=== PATIENT | female | born 1985 | race Caucasian/White ===

== ENCOUNTER → 2023-12-07 14:48 | Outpatient (REF) | payer OTHER, SELFPAY | LOC: PNTC 14:48 | PROVIDERS: ATTENDING PHYSICIAN Obstetrics & Gynecology; PRIMARYCARE PHYSICIAN Family Medicine | DX: O35.5XX0 Maternal care for (suspected) damage to fetus by drugs, not applicable or unspecified (principal); O43.219 Placenta accreta, unspecified trimester | CPT/HCPCS: 76805; 93976 ==

== ENCOUNTER → 2024-01-15 13:18 | Outpatient (REF) | payer OTHER, SELFPAY | LOC: PNTC 13:18 | PROVIDERS: ATTENDING PHYSICIAN Obstetrics & Gynecology | DX: O44.40 Low lying placenta NOS or without hemorrhage, unspecified trimester (principal); O34.219 Maternal care for unspecified type scar from previous cesarean delivery; O09.529 Supervision of elderly multigravida, unspecified trimester | CPT/HCPCS: 76811; 76817; 93976 ==

== ENCOUNTER → 2024-02-13 09:49 | Outpatient (REF) | payer OTHER, SELFPAY | LOC: PNTC 09:49 | PROVIDERS: ATTENDING PHYSICIAN Obstetrics & Gynecology | DX: O09.529 Supervision of elderly multigravida, unspecified trimester (principal); O34.219 Maternal care for unspecified type scar from previous cesarean delivery; O44.40 Low lying placenta NOS or without hemorrhage, unspecified trimester | CPT/HCPCS: 76816; 76817 ==

== ENCOUNTER → 2024-02-26 07:39 | Outpatient (REF) | payer OTHER, SELFPAY | LOC: PNTC 07:39 | PROVIDERS: ATTENDING PHYSICIAN Obstetrics & Gynecology | DX: O36.0120 Maternal care for anti-D [Rh] antibodies, second trimester, not applicable or unspecified (principal) | CPT/HCPCS: 36415; 86850; 86900; 86901; 96372; J2790 ==

== ENCOUNTER → 2024-03-27 09:48 | Outpatient (REF) | payer OTHER, SELFPAY | LOC: PNTC 09:48 | PROVIDERS: ATTENDING PHYSICIAN Obstetrics & Gynecology | DX: O34.219 Maternal care for unspecified type scar from previous cesarean delivery (principal); O09.529 Supervision of elderly multigravida, unspecified trimester; O44.40 Low lying placenta NOS or without hemorrhage, unspecified trimester | CPT/HCPCS: 76816 ==

== ENCOUNTER → 2024-04-08 06:45 | Outpatient (REF) | payer OTHER, SELFPAY | LOC: PNTC 06:45 | PROVIDERS: ATTENDING PHYSICIAN Obstetrics & Gynecology | DX: O34.219 Maternal care for unspecified type scar from previous cesarean delivery (principal); O09.523 Supervision of elderly multigravida, third trimester; O99.213 Obesity complicating pregnancy, third trimester; O99.843 Bariatric surgery status complicating pregnancy, third trimester; G44.049 Chronic paroxysmal hemicrania, not intractable | CPT/HCPCS: 76815 ==

== ENCOUNTER → 2024-04-15 06:57 | Outpatient (REF) | payer OTHER, SELFPAY | LOC: PNTC 06:57 | PROVIDERS: ATTENDING PHYSICIAN Obstetrics & Gynecology | DX: O34.219 Maternal care for unspecified type scar from previous cesarean delivery (principal); O09.523 Supervision of elderly multigravida, third trimester; O99.213 Obesity complicating pregnancy, third trimester; G44.049 Chronic paroxysmal hemicrania, not intractable; O99.843 Bariatric surgery status complicating pregnancy, third trimester | CPT/HCPCS: 59025; 76815 ==

== ENCOUNTER → 2024-04-22 07:04 | Outpatient (REF) | payer OTHER, SELFPAY | LOC: PNTC 07:04 | PROVIDERS: ATTENDING PHYSICIAN Obstetrics & Gynecology | DX: O09.529 Supervision of elderly multigravida, unspecified trimester (principal); O34.219 Maternal care for unspecified type scar from previous cesarean delivery; O44.40 Low lying placenta NOS or without hemorrhage, unspecified trimester | CPT/HCPCS: 59025; 76816 ==

== ENCOUNTER → 2024-04-29 07:17 | Outpatient (REF) | payer OTHER, SELFPAY | LOC: PNTC 07:17 | PROVIDERS: ATTENDING PHYSICIAN Obstetrics & Gynecology | DX: O44.40 Low lying placenta NOS or without hemorrhage, unspecified trimester (principal); O34.211 Maternal care for low transverse scar from previous cesarean delivery; O34.219 Maternal care for unspecified type scar from previous cesarean delivery; O09.519 Supervision of elderly primigravida, unspecified trimester | CPT/HCPCS: 59025; 76815 ==

== ENCOUNTER → 2024-05-06 06:57 | Outpatient (REF) | payer OTHER, SELFPAY | LOC: PNTC 06:57 | PROVIDERS: ATTENDING PHYSICIAN Obstetrics & Gynecology | DX: O09.529 Supervision of elderly multigravida, unspecified trimester (principal) | CPT/HCPCS: 59025 ==

== ENCOUNTER → 2024-05-13 07:04 | Outpatient (REF) | payer OTHER, SELFPAY | LOC: PNTC 07:04 | PROVIDERS: ATTENDING PHYSICIAN Obstetrics & Gynecology | DX: O44.40 Low lying placenta NOS or without hemorrhage, unspecified trimester (principal); O34.211 Maternal care for low transverse scar from previous cesarean delivery; O09.519 Supervision of elderly primigravida, unspecified trimester; O09.529 Supervision of elderly multigravida, unspecified trimester | CPT/HCPCS: 59025; 76815 ==

== ENCOUNTER 2024-05-15 09:38 | Inpatient (IN) | payer OTHER, SELFPAY ==
[2024-05-15 10:00] VITALS: BP 120/75; BMI 40.2
[2024-05-15] MEDS: LR 1000 IV (10:10)
[2024-05-15 10:59] LABS: Hematocrit 36.8 % (37.0-47.0); Mean Corp Hgb Conc. 32.6 g/dL (33.0-37.0); Mean Corpuscular Hgb 30.2 pg (27.0-31.0); Mean Corpuscular Volume 92.5 fL (81.0-99.0); Mean Platelet Volume 10.1 fL (7.4-10.4); Platelet Count 231 10^3/uL (130-400); Red Blood Cell Count 3.98 10^6/uL (4.20-5.40); Red Cell Dist. Width 13.2 % (11.5-14.5); White Blood Cell Count 9.2 10^3/uL (4.8-10.8)
[2024-05-15] MEDS: BICITRA 30 ML PO (13:45)
[2024-05-15] MEDS: TYLENOL 1000 MG PO (13:45)
[2024-05-15] MEDS: ANCEF 10 IV (13:46)
[2024-05-15] MEDS: PITOCIN 30 UNITS/NSS 500 ML IV ×2 (15:25→18:23)
[2024-05-15] MEDS: TORADOL 15 MG IV ×2 (16:06→22:44)
[2024-05-15] MEDS: TYLENOL 650 MG PO (20:51)
[2024-05-16] MEDS: TORADOL 15 MG IV ×2 (04:47→09:49)
[2024-05-16 04:58] LABS: Hematocrit 29.5 % (37.0-47.0); Hemoglobin 9.7 g/dL (12.0-16.0); Mean Corp Hgb Conc. 32.9 g/dL (33.0-37.0); Mean Corpuscular Hgb 30.6 pg (27.0-31.0); Mean Corpuscular Volume 93.1 fL (81.0-99.0); Mean Platelet Volume 9.8 fL (7.4-10.4); Platelet Count 206 10^3/uL (130-400); Red Blood Cell Count 3.17 10^6/uL (4.20-5.40); White Blood Cell Count 13.3 10^3/uL (4.8-10.8)
[2024-05-16] MEDS: PRENATAL PLUS 1 TABLET PO (08:03)
[2024-05-16] MEDS: CALAN EXTENDED RELEASE 120 MG PO (08:04)
[2024-05-16] MEDS: FEOSOL 325 MG PO (08:22)
--- NOTE | 2024-05-16 08:27 | W.PN.ANS.POP ---
Anesthesia Post Operative
- Anesthesia Post Op Note
Vital Signs Stable-See Nursing Note: Yes
Airway Patent: Yes
Adequate Pain Control: Yes
Change in Mental Status: No
Current Postoperative Nausea & Vomiting: No
Anesthesia Complications: No
General Anesthetic Recall: No
Unplanned Admission: No
Post Op Hydration Adequate: Yes
[2024-05-16] MEDS: RHOGAM 300 MCG IM (13:05)
[2024-05-16] MEDS: MOTRIN 600 MG PO (17:19)
[2024-05-16] MEDS: PERCOCET 5/325 1 TABLET PO ×2 (17:19→21:19)
[2024-05-17] MEDS: SENOKOT-S 1 TABLET PO (00:41)
[2024-05-17] MEDS: MOTRIN 600 MG PO ×4 (00:41→23:34)
[2024-05-17] MEDS: PERCOCET 5/325 1 TABLET PO ×3 (05:08→21:02)
[2024-05-17] MEDS: CALAN EXTENDED RELEASE 120 MG PO (07:45)
[2024-05-17] MEDS: FEOSOL 325 MG PO (07:48)
[2024-05-17] MEDS: PRENATAL PLUS 1 TABLET PO (07:48)
[2024-05-17 11:14] LABS: Syphilis/T. pallidum Ab Reflex Negative (Negative)
[2024-05-18] MEDS: PERCOCET 5/325 1 TABLET PO ×2 (04:43→09:56)
[2024-05-18] MEDS: CALAN EXTENDED RELEASE 120 MG PO (07:42)
[2024-05-18] MEDS: PRENATAL PLUS 1 TABLET PO (07:43)
[2024-05-18] MEDS: SENOKOT-S 1 TABLET PO (07:43)
[2024-05-18] MEDS: FEOSOL 325 MG PO (07:43)
[2024-05-18] MEDS: MOTRIN 600 MG PO (07:49)
== END 2024-05-18 10:52 | disposition home or self-care (01) | DRG 788 ==
LOC: LDRP 09:38
PROVIDERS: ADMITTING PHYSICIAN Obstetrics & Gynecology
PROC: 10D00Z1 Extraction of Products of Conception, Low, Open Approach (ICD-10-PCS; 2024-05-15)
PROC: 3E0334Z Introduction of Serum, Toxoid and Vaccine into Peripheral Vein, Percutaneous Approach (ICD-10-PCS; 2024-05-16)
DX: O34.211 Maternal care for low transverse scar from previous cesarean delivery (principal); N85.8 Other specified noninflammatory disorders of uterus; O69.82X0 Labor and delivery complicated by other cord entanglement, without compression, not applicable or unspecified; O77.0 Labor and delivery complicated by meconium in amniotic fluid; O34.13 Maternal care for benign tumor of corpus uteri, third trimester; D25.2 Subserosal leiomyoma of uterus; Z3A.39 39 weeks gestation of pregnancy; Z37.0 Single live birth; O99.824 Streptococcus B carrier state complicating childbirth; O26.893 Other specified pregnancy related conditions, third trimester; Z67.11 Type A blood, Rh negative
CPT/HCPCS: 36415; 85027; 85461; 86780; 86850; 86870; 86900; 86901; J2790